=== PATIENT | female | born 1965 | race Caucasian/White ===

== ENCOUNTER 2016-08-05 15:28 | Emergency (ER) | payer BC ==
[~2016-08-05] VITALS: Ht 170.2 cm; Wt 83.5 kg
[~2016-08-05 15:28] MED LIST: ACETAMINOPHEN-1 EAC1 PO; BRINTELLIX10 MG PO; ESTRING1 EACH VG; PERCOCET 5-3251 EACH PO; VALIUM5 MG PO
[2016-08-05 16:30] VITALS: BP 158/76
[2016-08-05] MEDS ORDERED: ULTRAM 50MG TAB50 MG PO (17:03)
[2016-08-05] MEDS ORDERED: NAPROSYN500 MG PO (17:03)
[2016-08-05] MEDS ORDERED: NORFLEX100 MG PO (17:03)
== END 2016-08-05 17:10 | disposition home or self-care (01) ==
LOC: ER 15:28
DX: M75.52 Bursitis of left shoulder (principal)

== ENCOUNTER 2018-07-14 16:05 | Emergency (ER) | payer BC ==
[~2018-07-14] VITALS: Ht 170.2 cm; Wt 85.7 kg
[~2018-07-14 16:05] MED LIST changes: +NAPROSYN500 MG PO; +NORFLEX100 MG PO; +ULTRAM 50MG TAB50 MG PO
[2018-07-14] MEDS ORDERED: NORFLEX100 MG PO ×4 (18:00→18:29)
[2018-07-14] MEDS ORDERED: NAPROSYN500 MG PO ×2 (18:00→18:29)
[2018-07-14 18:47] VITALS: BP 152/68
== END 2018-07-14 18:46 | disposition home or self-care (01) ==
LOC: ER 16:05
DX: S16.1XXA Strain of muscle, fascia and tendon at neck level, initial encounter (principal); S39.012A Strain of muscle, fascia and tendon of lower back, initial encounter; S86.911A Strain of unspecified muscle(s) and tendon(s) at lower leg level, right leg, initial encounter; S60.032A Contusion of left middle finger without damage to nail, initial encounter; R51 Headache; M25.511 Pain in right shoulder; M25.551 Pain in right hip; W01.0XXA Fall on same level from slipping, tripping and stumbling without subsequent striking against object, initial encounter; Y93.89 Activity, other specified; Y92.89 Other specified places as the place of occurrence of the external cause; Y99.8 Other external cause status